=== PATIENT | female | born 1985 | race Caucasian/White ===

== ENCOUNTER 2017-12-22 15:16 | Inpatient (IN) | payer OTHER ==
[2017-12-22] MEDS ORDERED: LIDOCAINE 1% 2 ML INJ ONE (16:46)
[2017-12-22] MEDS ORDERED: AMPICILLIN SODIUM 2 GM in STERILE WATER INJ 25 ML IV ONE (17:00)
[2017-12-22] MEDS: LR 1,000 ML IV SCH ×2 (17:15→18:32)
[2017-12-22 17:28] LABS: PLATELET COUNT 124 10^3/uL (150-400)
[2017-12-22] MEDS ORDERED: fentaNYL 2MCG/ML/BUP 0.1% RTU 100 ML BAG EP ONE (17:48)
[2017-12-22] MEDS ORDERED: BUPIVACAINE 0.25% 30 ML SDV ONE (17:49)
[2017-12-22] MEDS ORDERED: PHENYLEPHRINE HCL 100 MCG/ML SYR ONE (17:49)
[2017-12-22] MEDS ORDERED: fentaNYL 100 MCG/2 ML INJ ONE (17:50)
--- NOTE | 2017-12-22 18:57 | PREANESOB ---
Obstetric Pre-Anesthesia Info - General Info Proposed Procedure: Labor and delivery. : 3 Para: 1 ASIF: 12/28/17 Gestational Age: 39 week(s) and 1 day(s) - Info Status: Full Term Monitors: External FHR Baseline (bpm): 140 FHR Pattern: Reassuring - Labor Status Cervical Dilation per last OB SVE: 5 Indications for Labor Analgesia: Pain Control Labor Epidural: Proposed Anesthesia ROS: Prior labor epidural and general anesthesia for sinus surgery. Allergies/Adverse Reactions: Allergy/AdvReac Type Severity Reaction Status Date / Time No Known Allergies Allergy Unverified 12/22/17 16:06 Home Medications: Medication Instructions Recorded Complete Caplet 1 cap PO DAILY AT 10AM 12/22/17 valACYclovir [Valtrex (*)] 1 cap PO BID 12/22/17 Visit Medications: Generic Name Dose Route Start Last Admin Trade Name Freq PRN Reason Stop Dose Admin Ampicillin Sodium 1 gm/ 15 mls @ 60 mls/hr 12/22/17 21:00 Sterile Water IV 01/21/18 20:59 Q4H WILTON Lactated Ringer's 1,000 mls @ 125 mls/hr 12/22/17 17:00 12/22/17 18:32 Lr IV 06/20/18 16:59 1,000 mls CONT WILTON Administration Discontinued Medications Generic Name Dose Route Start Last Admin Trade Name Freq PRN Reason Stop Dose Admin Bupivacaine HCl Confirm 12/22/17 17:49 Sensorcaine 0.25% Sdv Administered 12/22/17 17:50 Dose 30 ml .ROUTE .STK-MED ONE Fentanyl Confirm 12/22/17 17:50 Sublimaze Administered 12/22/17 17:51 Dose 100 mcg .ROUTE .STK-MED ONE Fentanyl/Bupivacaine HCl Confirm 12/22/17 17:48 Fentanyl/Bupivacaine/Ns 2 Mcg/Ml 0.1% (Premix Administered 12/22/17 17:49 Dose 100 ml EP .STK-MED ONE Ampicillin Sodium 2 gm/ 25 mls @ 100 mls/hr 12/22/17 17:00 12/22/17 18:29 Sterile Water IV 12/22/17 17:14 25 mls ONCE ONE Administration Lidocaine HCl Confirm 12/22/17 16:46 Lidocaine Hcl 1% Administered 12/22/17 16:47 Dose 2 ml .ROUTE .STK-MED ONE Phenylephrine HCl Confirm 12/22/17 17:49 Neosynephrine Administered 12/22/17 17:50 Dose 1,000 mcg .ROUTE .STK-MED ONE - Anesthesia History Response to Local Anesthetics: Normal Anesthesia & Operative History: No Prior Problems Family Anesthesia History: Negative - Social History Substance Use/Abuse: Denies - Vital Signs Blood Pressure: 113/80 Heart Rate: 85 Height/Weight (Nursing): Height 160.02 cm Weight 60.328 kg - Focused Exam Neck exam: FROM Mallampati Score: Class 1 Mouth exam: normal dental/mouth exam Pulmonary: no respiratory distress Cardiovascular: regular rate and rhythym Labs: 12/22/17 17:10 - Plan Consent Signed and on Chart: Yes Patient/Guardian Understands and Agrees to Plan: Yes Urgent/Emergent Case: Wilman shelley completed preop but documented later for safe timely pt care
--- NOTE | 2017-12-22 18:57 | POSTANESTH ---
Post Anesthetic Evaluation Cardiovascular Status: Normal, Stable, Similar to Pre-Op Cond Respiratory Status: Normal, Stable, Similar to Pre-op Cond. Level of Consciousness/Mental Status: Can Participate in Eval, Alert and Oriented Pain Control: Adequate, Prn Tx Ordered Nausea/Vomiting Control: Adequate, Prn Tx Ordered Complications Possibly Related to Anesthesia: None Noted
[2017-12-22] MEDS ORDERED: PHENYLEPHRINE HCL 100 MCG/ML SYR IVP PRN (18:58)
[2017-12-22] MEDS ORDERED: ONDANSETRON 4 MG/2 ML VIAL IVP PRN (18:58)
[2017-12-22] MEDS ORDERED: LR 500 ML IV SCH (19:00)
[2017-12-22] MEDS ORDERED: fentaNYL 2MCG/ML/BUP 0.1% RTU 100 ML EP SCH (19:00)
--- NOTE | 2017-12-22 20:17 | GHP ---
[f rep st] PREOP HISTORY AND PHYSICAL DATE OF ADMISSION: 12/22/2017 ADMITTING DIAGNOSIS: Intrauterine at 39-2/7 weeks gestation, in active labor. HISTORY OF PRESENT ILLNESS: The patient is a 32-year-old, 3, para 1-0-1-1 with a last menstr ual period of 03/24/2017. EDC of 12/28/2017. Confirmed by first trimester ultrasound. She has had good care at [facility] since registration at 10 weeks and presents in active labo r. She began having contractions at approximately 3 in the morning. They increased in frequency and intensity and in the evening of the 2nd she presented. Her cervix was 4-5 cm, 80%, posterior. She had a bulging bag of water. The patient is intact and is admitted for active labor management. The patient is GBS positive and was started on ampicillin. RISK FACTORS: This is an IUI . She has a history of HSV 2. She has been on Valtr ex suppression and has no current active outbreaks. She has a history of migraines and is GBS positi ve. No other significant risk factors. PAST MEDICAL HISTORY: In May of 2016, she had a viable female 6 pounds 12 ounces. Vaginal delivery . In 2014, she had an ectopic . Was treated with methotrexate. PAST GYNECOLOGICAL HISTORY: She has a normal menstrual triad with menarche at age 11 interval every 30 days. No menstrual abnormality. She had sure and regular last menstrual period of 03/24/2017 and she had an IUI due to male factor. She does have a history of HSV2 outbreak in 2012. No outbreaks since. She has been on suppression. PAST SURGICAL HISTORY: She has a history of sinus surgery. ALLERGIES: She has no known drug allergies. MEDICATIONS: vitamins with DHA. SOCIAL HISTORY: She is . She lives with her and her daughter. She works in business finance. She denies tobacco, alcohol, and drug use. LABORATORY DATA: She is A positive, antibody negative, RPR nonreactive, rubella immune, hepatitis ne gative, HIV negative, Pap normal, gonorrhea and chlamydia normal. 1-hour GTT normal. GBS is positiv e. FAMILY HISTORY: Noncontributory. SUBJECTIVE: Today she is afebrile. Vital signs are stable. heart tones are 130s. Reactive m oderate variability. Category 1. She is jenaro every 2-3 minutes. The patient is comfortable w ith an epidural. I just rechecked her cervix. She is 8 cm, 80%, 0 station with a bulging bag. ASSESSMENT/PLAN: A 32-year-old 3, para 1-0-1-1 at 39 weeks gestation, in active labor. GBS positive. On ampicillin. She will have active labor management. /[id number]/MODL
[2017-12-22] MEDS ORDERED: LIDOCAINE 1% 300 MG/30 ML SDV ONE (21:08)
[2017-12-22] MEDS ORDERED: OLIVE OIL 118 ML BTL ONE (21:09)
[2017-12-22] MEDS ORDERED: AMMONIA AROMATIC 1 EACH AMP IH ONE (21:09)
[2017-12-22] MEDS ORDERED: TERBUTALINE SULFATE 1 MG/ML VIAL ONE (21:09)
[2017-12-22] MEDS ORDERED: OXYTOCIN 10 UNIT/ML VIAL ONE (21:09)
[2017-12-22] MEDS: AMPICILLIN SODIUM 1 GM in STERILE WATER INJ 15 ML IV SCH (22:00)
--- NOTE | 2017-12-22 22:27 | OBPROG ---
Labor Progress Note Assessment/Plan: Assessment: 32 y/o @ 39 2/7 weeks in active labor Plan: Expectantly manage for now, will augment contractions with pitocin. status reassuring. 12/22/17 22:26 Subjective/Intrapartum Course: 12/22/17 22:23 Pt is comfortable with her epidural. Objective: 12/22/17 17:10 Temp Pulse Resp BP Pulse Ox 85 113/80 12/22/17 18:57 12/22/17 18:57 - SVE Dilation (cm): 9 Effacement (%): 90 Station: 0 Membranes: AROM Amniotic Fluid Color: Clear - Contraction Pattern Assessment Current Contraction Pattern: Regular (Q 4 ) - FHR Assessment Velasquez FHR (bpm): 130 FHR Pattern Variability: Moderate FHR Category: 1 - Procedures Non-surgical Procedures: Amniotomy - AP Antepartum Course: 12/22/17 22:25 IUI H/o HSV II on Valtrex, no lesions chronic migraines GBS + Oxytocin Orders Assessment - Pre-Induction/Augmentation Assessment Gestational Age: 39 week(s) and 1 day(s) ICD10 Worksheet Patient Problems: Problems Problem Status Onset Normal labor Acute - ICD10 Problem Qualifiers (1) Normal labor
[2017-12-22] MEDS ORDERED: LR 500 ML IV PRN (22:28)
[2017-12-22] MEDS ORDERED: OXYTOCIN 30 UNIT in NS 500 ML IV SCH (22:30)
[2017-12-23] MEDS ORDERED: DOCUSATE SODIUM 100 MG CAP PO PRN (00:21)
[2017-12-23] MEDS ORDERED: HYDROCODONE/APAP 5/325 TAB PO PRN (00:21)
[2017-12-23] MEDS ORDERED: SIMETHICONE 80 MG TAB CHEW PO PRN (00:21)
[2017-12-23] MEDS ORDERED: HYDROCORTISONE 0.5% CREAM TP PRN (00:21)
[2017-12-23] MEDS ORDERED: ACETAMINOPHEN 325 MG TAB PO PRN (00:21)
--- NOTE | 2017-12-23 00:25 | OBDEL ---
Info Type: Vaginal Presentation at Delivery: Vertex L&D Analgesia/Anesthesia Type: Epidural GBS+: Yes Antibiotic Used for + GBS: Ampicillin Intrapartum Medications: Generic Name Dose Route Start Last Admin Trade Name Freq PRN Reason Stop Dose Admin Ampicillin Sodium 1 gm/ 15 mls @ 60 mls/hr 12/22/17 21:00 12/22/17 22:00 Sterile Water IV 01/21/18 20:59 15 mls Q4H WILTON Administration Lactated Ringer's 1,000 mls @ 125 mls/hr 12/22/17 17:00 12/22/17 18:32 Lr IV 06/20/18 16:59 1,000 mls CONT WILTON Administration Discontinued Medications Generic Name Dose Route Start Last Admin Trade Name Freq PRN Reason Stop Dose Admin Ampicillin Sodium 2 gm/ 25 mls @ 100 mls/hr 12/22/17 17:00 12/22/17 18:29 Sterile Water IV 12/22/17 17:14 25 mls ONCE ONE Administration - Hospital Course Intrapartum: 12/22/17 22:23 Pt is comfortable with her epidural. Indications for Delivery: Spontaneous Labor Vaginal Delivery - Delivery Provider Delivery Physician/CNM: Antonia Castañeda - Labor and Delivery Onset of Contractions Date: 12/22/17 Onset of Contractions Time: 03:00 Onset of Contractions Type: Spontaneous Rupture of Membranes Date: 12/22/17 Rupture of Membranes Time: 22:18 Rupture of Membranes Type: Artificial Amniotic Fluid Color: Clear Dilation Complete Date: 12/23/17 Dilation Complete Time: 00:00 Placenta Delivery Date: 12/23/17 Placenta Delivery Time: 00:14 Total Hours of Labor: 21 Non-surgical Procedures: Amniotomy Laceration: Other (Specify) (none intact perineum) Vaginal Sponge Count Correct: Yes Vaginal Needle Count Correct: Yes Vaginal Sweep Performed: No EBL: 150 - Medications Labor Augmentation/Induction Methods Used: None Data ASIF: 12/28/17 Gestational Age: 39 week(s) and 2 day(s) Velasquez Delivery Date: 12/23/17 Delivery Time: 00:09 Sex of Infant: Male Score (1 Min): 8 Score (5 Min): 9 ICD10 Worksheet Patient Problems: Problems Problem Status Onset Normal labor Acute (spontaneous vaginal delivery) Acute - ICD10 Problem Qualifiers (1) Normal labor (2) (spontaneous vaginal delivery)
[2017-12-23] MEDS ORDERED: IBUPROFEN 600 MG TAB PO PRN (02:00)
[2017-12-23] MEDS: AMPICILLIN SODIUM 1 GM in STERILE WATER INJ 15 ML IV SCH (02:28)
[2017-12-23] MEDS: IBUPROFEN 600 MG TAB PO PRN ×3 (07:38→22:23)
[2017-12-23] MEDS: IRON POLYSAC/IRON HEME 28 MG TAB PO SCH (12:03)
[2017-12-23 23:35] VITALS: TEMP 97.2; O2SAT 96
[2017-12-24] MEDS: IBUPROFEN 600 MG TAB PO PRN ×2 (05:35→11:41)
--- NOTE | 2017-12-24 08:48 | OBPP ---
Progress Note Assessment/Plan: Assessment: 32 y/o PPD #1 s/p doing well Plan: D/c home today with Rx Ibuprofen. Follow-up @ [facility] 4 and 6 weeks. 12/22/17 22:26 12/24/17 08:48 Subjective/ Course: 12/24/17 08:38 Pt is doing well this am. She has min cramping and perineal pain controlled by Ibuprofen. She has min lochia and is ambulating and voiding without difficulty. Breast feeding is going well and they are ready to go home. Objective: 12/22/17 17:10 Temp Pulse Resp BP Pulse Ox 36.2 C 70 14 106/68 96 12/23/17 20:00 12/23/17 20:00 12/23/17 20:00 12/23/17 20:00 12/23/17 20:00 Uterine Position/Fundal Height: Umbilicus -2 Uterine Tone: Firm Physical Exam - Physical Exam Neck: non-tender, full range of motion, supple Respiratory: chest non-tender, lungs clear, normal breath sounds Cardiac/Chest: regular rate, rhythm Abdomen: normal bowel sounds Extremities: swelling (no), Gideon's sign (neg)
--- NOTE | 2017-12-24 08:49 | OBGCSDC ---
General Delivery Information - General Info : 3 Para: 2 Abortions: 0 Type: Vaginal L&D Analgesia/Anesthesia Type: Epidural Admission Date: 12/22/17 Labs: Hct 40.0 % (38.0-47.0) 12/22/17 17:10 - Hospital Course Antepartum: 12/22/17 22:25 IUI H/o HSV II on Valtrex, no lesions chronic migraines GBS + Intrapartum: 12/22/17 22:23 Pt is comfortable with her epidural. : 12/24/17 08:38 Pt is doing well this am. She has min cramping and perineal pain controlled by Ibuprofen. She has min lochia and is ambulating and voiding without difficulty. Breast feeding is going well and they are ready to go home. Vaginal - Delivery Provider Delivery Physician/CNM: Antonia Castañeda - Diagnosis Labor: Spontaneous Rupture of Membranes Type: Artificial Amniotic Fluid Color: Clear Laceration: Other (Specify) (none intact perineum) - Procedures Non-surgical Procedures: Amniotomy - Delivery Non-surgical Procedures: Amniotomy EBL: 150 [place] Data ASIF: 12/28/17 Gestational Age: 39 week(s) and 3 day(s) Velasquez Delivery Date: 12/23/17 Delivery Time: 00:09 Sex of : Male Score (1 Min): 8 Score (5 Min): 9 Discharge Information - Discharge Information Prescriptions: Ibuprofen [Motrin (*)] 600 mg PO Q6HRS PRN #30 tab PRN Reason: Pain, Inflammatory Condition: Good Instruction/Follow Up: Four Weeks, Six Weeks
[2017-12-24 10:55] VITALS: BP 108/69; PULSE 69; RESP 16
[2017-12-24] MEDS: IRON POLYSAC/IRON HEME 28 MG TAB PO SCH ×2 (11:41→13:46)
== END 2017-12-24 12:30 | disposition home or self-care (01) | DRG 775 ==
LOC: FLD 15:16 → INTOOBSV 15:16 → OBSVTOIN 20:27 → FOB 12-23 03:35
PROVIDERS: ADMIT Obstetrics & Gynecology; ATTEND Obstetrics & Gynecology
DX: O99.824 Streptococcus B carrier state complicating childbirth (principal); Z3A.39 39 weeks gestation of pregnancy; Z37.0 Single live birth
CPT/HCPCS: J0290; J2370; J3010; J3105